=== PATIENT | female | born 1965 | race Two or more races ===

== ENCOUNTER 2022-05-09 11:01 | Emergency (ER) | payer OTHER ==
[~2022-05-09] VITALS: Ht 172.7 cm; Wt 76.7 kg
[2022-05-09] MEDS ORDERED: METFORMIN HCL500 M3 (11:52)
[2022-05-09] MEDS ORDERED: CYCLOBENZAPRINE10 MG (11:53)
[2022-05-09] MEDS ORDERED: LYRICA150 MG (11:54)
[2022-05-09] MEDS ORDERED: SYNTHROID50 MCG (11:54)
[2022-05-09] MEDS ORDERED: CYMBALTA60 MG (11:54)
[2022-05-09] MEDS ORDERED: KETO10TA2 PO (16:03)
[2022-05-09] MEDS ORDERED: TAMS0.4C PO (16:03)
== END 2022-05-09 16:07 | disposition home or self-care (01) ==
LOC: ER 11:01
DX: R10.9 Unspecified abdominal pain (principal)